=== PATIENT | female | born 1955 | race Caucasian/White ===

== ENCOUNTER 2022-06-14 08:33 | Emergency (ER) | payer MEDICARE, SELFPAY ==
[2022-06-14 08:44] VITALS: BP 137/73; PULSE 74; RESP 16; TEMP 36.4; O2SAT 100
--- NOTE | 2022-06-14 09:09 | ED.SKABFB ---
HPI - Skin/Abscess/Foreign Bdy General Chief complaint: Skin/Abscess/Foreign Body Stated complaint: Rash Time Seen by Provider: 06/14/22 09:09 Source: patient and RN notes reviewed Mode of arrival: ambulatory Limitations: no limitations History of Present Illness HPI narrative: 66-year-old female presents with concern for rash on her arms, face. Reports she may have been exposed to poison radha when she was pulling weeds on Friday. She reports the rash started Friday on her hand and has spread to her arms and face. She denies trouble breathing, swollen lips, swollen tongue. She reports she has tried several [id number] remedies and home remedies without relief. MD complaint: rash Related Data Home Medications Medication Instructions Recorded Confirmed amlodipine 5 mg tablet 5 mg PO DAILY 01/08/22 06/14/22 hydrochlorothiazide 25 mg tablet 25 mg PO DAILY 01/08/22 06/14/22 losartan 100 mg tablet 100 mg PO DAILY 01/08/22 06/14/22 potassium 99 mg tablet 99 mg PO DAILY 01/08/22 06/14/22 Allergies Allergy/AdvReac Type Severity Reaction Status Date / Time No Known Allergies Allergy Verified 06/14/22 08:56 Review of Systems Review of Systems: CONSTITUTIONAL: Denies malaise, chills, sweats, or fever. EYES: Denies redness, or discharge. ENT: Denies rhinorrhea, congestion, swollen lips, swollen tongue CARDIOVASCULAR: Denies chest pain, palpitations, or edema. RESPIRATORY: Denies cough or dyspnea. GASTROINTESTINAL: Denies abdominal pain, nausea, vomiting SKIN: Reports itchy, tight rash on her hands, arms, face MUSCULOSKELETAL: Denies joint pain or myalgia. NEUROLOGIC: Denies headache. All systems reviewed & are unremarkable except as noted in HPI and below PMFSH Social History Social History Smoking status: Never smoker Spiritual care concerns: No Comments At time of signature, agree with nursing past medical, surgical, social and family history. There is no relevant family history pertinent to the presenting complaint Exam Narrative: GENERAL: Well-appearing, well-nourished, and in no acute distress. HEAD: Normocephalic, atraumatic. EYES: PERRLA, conjunctivae clear, and EOMI. ENT: Mucous membranes moist. Oropharynx without edema, erythema or lesions. NECK: Supple. No lymphadenopathy CHEST: Clear to auscultation. No respiratory distress. HEART: Regular rate and rhythm. SKIN: Warm, dry. Vesicular linear rash noted to the right hand, vesicles and papules on the right arm, forehead, upper cheeks and around both eyes are erythematous and mildly swollen NEURO: Alert and oriented x3. PSYCH: Normal mood and affect Course Course Emergency Course: Patient is aware of diagnosis, understands and agrees to treatment plan. Anticipatory guidance given. Patient agrees to follow-up as directed and is aware of reasons to seek care at the emergency department. Portions of this record may have been created with voice recognition software Level of Care: Express Care Visit Vital Signs Vital signs: Vital Signs Temperature 97.6 F 06/14/22 08:44 Pulse Rate 74 06/14/22 08:44 Respiratory Rate 16 06/14/22 08:44 Blood Pressure 137/73 06/14/22 08:44 Pulse Oximetry 100 06/14/22 08:44 Oxygen Delivery Room Air 06/14/22 08:44 Temperature 97.6 F 06/14/22 08:44 Pulse Rate 74 06/14/22 08:44 Respiratory Rate 16 06/14/22 08:44 Blood Pressure 137/73 06/14/22 08:44 Pulse Oximetry 100 06/14/22 08:44 Oxygen Delivery Room Air 06/14/22 08:44 Reviewed. MDM - Skin/Abscess/Foreign Bdy MDM Narrative Medical decision making narrative: Does not appear at this time to be erythema multiforme, bullous, SJS, TEN; no evidence at this time to suggest RMSF, endocarditis or Lyme disease; patient looks well, nontoxic and is tolerating oral intake; no neurologic signs or symptoms; no headache, photophobia or neck pain; afebrile; appropriate for initial outpatient treatment; discussed the importance of foll
[2022-06-14] MEDS: methylPREDNISolone SOD SUCC 125 MG VIAL IM (09:22)
== END 2022-06-14 09:38 | disposition home or self-care (01) ==
PROVIDERS: Emergency Provider Nurse Practitioner
DX: L25.9 Unspecified contact dermatitis, unspecified cause (principal); I10 Essential (primary) hypertension
CPT/HCPCS: 96372; 99213; G0463; J2930